=== PATIENT | female | born 1935 | race Caucasian/White ===

== ENCOUNTER → 2018-09-26 | Outpatient (CLI) | payer MEDICARE, BC | END | disposition home or self-care (01) | LOC: PCVCCLINIC 15:17 | PROVIDERS: ATTEND Internal Medicine Cardiovascular Disease | DX: I48.0 Paroxysmal atrial fibrillation (principal); I10 Essential (primary) hypertension; R06.09 Other forms of dyspnea; K21.9 Gastro-esophageal reflux disease without esophagitis; Z79.82 Long term (current) use of aspirin | CPT/HCPCS: 93005; G0463 ==

== ENCOUNTER → 2018-11-04 | Outpatient (CLI) | payer MEDICARE, BC ==
[~2018-11-04] MED LIST: REGADENOSON 0.4 MG/5 ML DISP.SYRIN. IV ONE
--- NOTE | 2018-11-04 09:32 | PCVCIMAG ---
APPROVED REPORT Study performed: 11/04/2018 08:07:10 EXAM: Comprehensive 2D, Doppler, and color-flow Echocardiogram Patient Location: Echo lab Room #: 2Status: routine BSA: 1.42 HR: 82 bpmBP: 128/68 mmHg Rhythm: NSR Other Information Study Quality: Good Indications Atrial Fibrillation Dyspnea Peripheral Edema Hypertension/HDD Paroxysmal a fib, frequent falls 2D Dimensions IVSd: 7.75 (7-11mm)LVOT Diam: 23.62 (18-24mm) LVDd: 36.15 mm PWd: 7.07 (7-11mm)Ascending Ao: 26.13 (22-36mm) LVDs: 27.34 (25-40mm) Left Atrium: 23.38 (27-40mm) Aortic Root: 24.05 mm LV Single Plane 4CH: 55.35 % LV Single Plane 2CH: 53.23 % Biplane EF: 54.4 % Volumes Left Atrial Volume (Systole) Single Plane 4CH: 22.42 mLSingle Plane 2CH: 34.59 mL Biplane LA Volume: 30.00 mLLA ESV Index: 21.00 mL/m2 Aortic Valve AoV Peak Donaldo.: 1.12 m/s AO Peak Gr.: 5.02 mmHgLVOT Max P.67 mmHg LVOT Max V: 0.96 m/s DOMI Vmax: 3.74 cm2 Mitral Valve E/A Ratio: 0.7 MV Decel. Time: 299.40 ms MV E Max Donaldo.: 0.48 m/s MV A Donaldo.: 0.68 m/s TDI E/Lateral E': 6.00E/Medial E': 6.86 Medial E' Donaldo.: 0.07 m/s Lateral E' Donaldo.: 0.08 m/s Pulmonary Valve PV Peak Donaldo.: 0.82 m/sPV Peak Gr.: 2.69 mmHg Pulmonary Vein P Vein S: 0.75 m/sP Vein A: 1.30 m/s P Vein D: 0.26 m/sP Vein A Dur.: 121.1 msec P Vein S/D Ratio: 2.88 Tricuspid Valve TR Peak Donaldo.: 2.35 m/s TR Peak Gr.: 22.16 mmHg TV Vmax: 0.59 m/sPA Pressure: 29.00 mmHg Left Ventricle The left ventricle is normal size. There is normal LV segmental wall motion. There is normal left ventricular wall thickness. Left ventricular systolic function is normal. The left ventricular ejection fraction is within the normal range. LVEF is 55%. Grade I - abnormal relaxation pattern. Right Ventricle The right ventricle is normal size. The right ventricular systolic function is normal. Atria The left atrium size is normal. The atrial septum is aneurysmal. The interatrial septum is intact with no evidence for an atrial septal defect. The right atrium size is normal. Aortic Valve Aortic valve is trileaflet. The aortic valve is normal in structure and function. No aortic regurgitation is present. There is no aortic valvular stenosis. Mitral Valve The mitral valve is normal in structure. There is no mitral valve regurgitation noted. No evidence of mitral valve stenosis. Tricuspid Valve The tricuspid valve is normal in structure. Mild to moderate tricuspid regurgitation with a PA pressure of 29 mmHg. No pulmonary hypertension. Pulmonic Valve The pulmonary valve is normal in structure. There is no pulmonic valvular regurgitation. Great Vessels The aortic root is normal in size. The ascending aorta is normal in size. Aortic arch is normal in caliber. IVC collapses >50% with inspiration. Pericardium There is no pericardial effusion. There is no pleural effusion. <Conclusion> The left ventricle is normal size. There is normal left ventricular wall thickness. Left ventricular systolic function is normal. Grade I - abnormal relaxation pattern. The right ventricle is normal size. The left atrium size is normal. The atrial septum is aneurysmal. The interatrial septum is intact with no evidence for an atrial septal defect. The aortic valve is normal in structure and function. There is no mitral valve regurgitation noted. Mild to moderate tricuspid regurgitation with a PA pressure of 29 mmHg.
--- NOTE | 2018-11-04 13:05 | PCVCIMAG ---
APPROVED REPORT Imaging Protocol: Rest Tc-99m/Stress Tc-99m 1 day Study performed: 11/04/2018 09:28:22 Indication: Afib, Dyspnea Patient Location: Out-Patient Stress Nurse: Simi Hopkins RN, BERNARDO Rios Tech:José Miugel Donahue NMJAMILA Ht: 5 ft 1 in Wt: 109 lbs BSA: 1.46 m2 HR: 70 bpm BP: 177/70 mmHg BMI: 20.59 Rhythm: Sinus Rhythm Medical History Medical History: Hyperlipidemia, GERD, History of Afib, Dyspnea Medications: ASA, Lasix, Losartan, Metoprolol Allergies: Codeine, Morphine, PCN, Sulfa Pretest Chest Pain Characteristics: No chest pain Exercise History: Sedentary Meds Held (24 hrs): Metoprolol Resting Data Rest SPECT myocardial perfusion imaging was performed in supine position 45 minutes following the intravenous injection of 11.8 mCi of Tc-99m Sestamibi. Time of rest injection: 0900 Date: 11/04/2018 Administration Route: IV Administration Site: Right AC Pharmacologic Stress Pharmacologic stress test was performed by injecting Regadenoson 0.4 mg IV push over 10-15 seconds immediately followed by the intravenous injection of 34.8 mCi of Tc-99m Sestamibi. Time of stress injection: 1035 Date: 11/04/2018 Administration Route: IV Administration Site: Right AC Gated Stress SPECT was performed 45 minutes after stress injection. The images were gated to evaluate regional wall motion and calculate left ventricular ejection fraction. Stress Test Details Stress Test: Pharmacologic stress testing performed using 0.4 mg of regadenoson per 5 mL given IV over 10 seconds. Reason for pharmacologic stress test: Gait instability. HRMax Heart Rate (APMHR): 137 bpm Resting HR: 70 bpmTarget HR (85% APMHR): 116 bpm Max HR Achieved: 107 bpm % of APMHR: 78 Recovery HR: 103 bpm BP Resting BP: 177/70 mmHg Max BP: 149/68 mmHg Recovery BP: 140/63 mmHg ECG Resting ECG: Sinus Rhythm Stress ECG: Sinus Tachycardia ST Change: Non-ischemic Arrhythmia: None Recovery ECG: Sinus Rhythm Clinical Reason for Termination: Completed protocol Stress Symptoms: Throat tightness Exercise duration: min 55 sec Symptoms resolved with caffeine. Study Quality Study: Good Study Data Post stress, the left ventricular ejection was 77%.. SSS: 0 SRS: 0 SDS: 0 TID = 1.03. Perfusion Normal left ventricular perfusion. Normal perfusion on both the stress and rest images. Wall Motion Normal left ventricular wall motion. Nuclear Conclusion ECG Findings: negative for ischemia Clinical Findings: non-diagnostic Nuclear Findings: negative for ischemia Exercise Capacity: not assessed Left Ventricular Function: normal Risk Study: low This study is of low probability for inducible ischemia or prior infarct. Normal global and segmental LV systolic function.
== END | disposition home or self-care (01) ==
LOC: PCVCIMAG 08:27
PROVIDERS: ATTEND Internal Medicine Cardiovascular Disease
DX: I07.1 Rheumatic tricuspid insufficiency (principal); I48.0 Paroxysmal atrial fibrillation; R06.09 Other forms of dyspnea; R60.0 Localized edema; I10 Essential (primary) hypertension; K21.9 Gastro-esophageal reflux disease without esophagitis; E03.9 Hypothyroidism, unspecified; E78.5 Hyperlipidemia, unspecified; Z79.82 Long term (current) use of aspirin
CPT/HCPCS: 78452; 93017; 93306; A9500; G0463; J2785

== ENCOUNTER → 2019-05-19 | Outpatient (CLI) | payer MEDICARE, BC | END | disposition home or self-care (01) | LOC: PCVCCLINIC 15:28 | PROVIDERS: ATTEND Internal Medicine Cardiovascular Disease | DX: I48.91 Unspecified atrial fibrillation (principal); I10 Essential (primary) hypertension; K21.9 Gastro-esophageal reflux disease without esophagitis; R60.9 Edema, unspecified; Z88.0 Allergy status to penicillin; Z79.82 Long term (current) use of aspirin | CPT/HCPCS: 93005; G0463 ==